=== PATIENT | female | born 1990 | race Caucasian/White ===

== ENCOUNTER 2025-02-11 12:27 | Emergency (ER) | payer OTHER, SELFPAY ==
[2025-02-11] VITALS (9 sets, daily range): BP systolic 110–121; BP diastolic 73–79; PULSE 73–89; TEMP 37.1; O2SAT 98–99; BMI 23.2
--- NOTE | 2025-02-11 12:47 | ECG_ITS ---
[facility] Test Date: 2025-02-11 Pat Name: CHERI NELSON Department: Room: - Gender: Female Assorter: : 1990 Requested By: [id number] Order Number: [id number] Reading MD: AFSHIN GARIBAY Measurements Intervals [place] Rate: 79 P: 34 ME: 148 QRS: 72 QRSD: 74 T: 43 QT: 390 QTc: 425 Interpretive Statements 1100 Sinus rhythm 9110 normal ECG No previous ECG available for comparison Electronically Signed On 02-11-2025 18:40:27 EDT by AFSHIN GARIBAY
--- NOTE | 2025-02-11 12:47 | ED_ITS ---
HPI HPI - General Adult General Chief complaint: Seizure Stated complaint: SEIZURE Time Seen by Provider: 02/11/25 12:32 Source: patient Mode of arrival: ambulance Limitations: no limitations History of Present Illness HPI narrative: 34-year-old female presents after having had a seizure. 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 She comes in from a drug treatment center and she states she is there because of the gabapentin and marijuana. She has a headache. She was given IM Ativan by the staff at the drug treatment center and was transported here by paramedics. Related Data Allergies Allergy/AdvReac Type Severity Reaction Status Date / Time No Known Drug Allergies Allergy Verified 02/11/25 12:28 Opioid HPI Opioid Management Most Recent Opioid Data: Last Pain Scale 10 Today, 12:28 Review of Systems ROS Narrative A ten point review of systems is negative except as noted above. PFSH PFSH Social History Little interest or pleasure in doing things: not at all Feeling down, depressed, or hopeless: not at all Exam Narrative Exam Narrative: Nurses note and vital signs reviewed General:The patient appears well and in no apparent distress.Patient is resting comfortably on cart, watching TV. Skin:Warm, dry, no pallor noted.There is no rash noted. Head:Normocephalic, atraumatic Eye: Normal conjunctiva, no drainage Ears, Nose, Mouth, and Throat: oral mucosa is moist. Nares patent. Cardiovascular:Regular Rate and Rhythm Respiratory:Patient is in no distress, no accessory muscle use, lungs are clear to auscultation, no wheezing, rales or rhonchi Back:non-tender GI: Soft and nontender Musculoskeletal: The patient has no evidence of calf tenderness, no pitting edema, symmetrical pulses noted bilaterally Neurological:A&O x4, normal speech Psychiatric:Cooperative Constitutional Vital Signs, click to edit/add: Last Vital Signs Temp 98.8 F 02/11/25 12:28 Pulse 89 02/11/25 13:30 Resp 21 H 02/11/25 13:30 BP 121/73 02/11/25 13:30 Pulse Ox 99 02/11/25 12:28 O2 Del Method Room Air 02/11/25 12:28 Course Vital Signs Vital signs: Vital Signs Temperature 98.8 F 02/11/25 12:28 Pulse Rate 78 02/11/25 12:28 Respiratory Rate 16 02/11/25 12:28 Blood Pressure 110/79 02/11/25 12:28 Pulse Oximetry 99 02/11/25 12:28 Oxygen Delivery Method Room Air 02/11/25 12:28 Temperature 98.8 F 02/11/25 12:28 Pulse Rate 89 02/11/25 13:30 Respiratory Rate 21 H 02/11/25 13:30 Blood Pressure 121/73 02/11/25 13:30 Pulse Oximetry 99 02/11/25 12:28 Oxygen Delivery Method Room Air 02/11/25 12:28 Medical Decision Making MDM Narrative Medical decision making narrative: Patient had a recurrent seizure and has normal logic exam. She has been referred to a neurologist and was encouraged to follow-up with them. Treatment diagnosis and follow-up were discussed with the patient. Differential Diagnosis Differential Diagnosis: Recurrent seizure, stress Lab Data Lab results reviewed: Yes I reviewed the patient's lab results Labs: Lab Results 02/11/25 Range/Units 13:00 WBC 9.0 (4.0-11.0) 10^3/uL RBC 3.92 L (4.20-5.40) 10^6/uL Hgb 11.5 L (12.0-16.0) g/dL Hct 34.8 L (36.0-48.0) % MCV 88.8 (81.0-99.0) fL MCH 29.3 (26.7-34.0) pg MCHC 33.0 (29.9-35.2) g/dL RDW 15.0 (11.0-15.0) % Plt Count 337 (150-450) 10^3/uL MPV 10.1 (9.5-13.5) fL Neut % (Auto) 66.5 (43.0-75.0) % Lymph % (Auto) 25.3 (20.5-60.0) % [place] % (Auto) 6.6 (1.7-12.0) % Eos % (Auto) 1.0 (0.9-7.0) % Baso % (Auto) 0.4 (0.2-2.0) % Neut # (Auto) 6.0 (1.4-6.5) 10^3/uL Lymph # (Auto) 2.3 (1.2-3.8) 10^3/uL [place] # (Auto) 0.6 (0.3-0.8) 10^3/uL Eos # (Auto) 0.1 (0.0-0.7) 10^3/uL Baso # (Auto) 0.0 (0.0-0.1) 10^3/uL Abs Immat Gran (auto) 0.02 (0.00-0.03) 10^3/uL Imm/Tot Granulo (auto) 0.2 (0.0-0.5) % Sodium 138 (136-145) mmol/L Potassium 3.9 (3.5-5.1) mmol/L Chloride 104 (98-107) mmol/L Carbon Dioxide 26.8 (21.0-32.0) mmol/L Anion Gap 11.1 BUN 10.0 (7.0-18.0) mg/dL Creatinine 0.53 L (0.55-1.02) mg/dL Est GFR ( Amer) >60 (>=60 mL/min/1.73m^2) Est GFR (Non-Af Amer) >60 (>=60 mL/min/1.73m^2) BUN/Creatinine Ratio 18.9 Glucose 87 (74-106) mg/dL Calcium 8.9 (8.5-10.1) mg/dL ECG Data Attestation: I personally reviewed and interpreted this ECG as follows: (EKG on my interpretation shows sinus rhythm with a rate of 79 and no acute change) Discharge Plan Discharge Chief Complaint: Seizure Clinical Impression: Seizure Patient Disposition: Home, Self-Care Time of Disposition Decision: 13:46 Condition: Good Mode of Transportation: Private Vehicle Print Language: Polish Instructions: Recurrent Seizures in Adults (ED) Referrals: Physician,Non-Staff, MD [Primary Care Provider] - 1 week
--- NOTE | 2025-02-11 12:50 | PC.NURSE ---
Pt presents to ER from [facility] rehab facility for seziures This nurse recieved phone report from nurse at the facility who states the patient had 2 back to back seziures witnessed by her Pt staets she took herself to the nurses office and layed on the floor because she knew it was coming First seizure reportedly lasted 45 seconds, second one lasted 15 seconds pt was given 2mg IM Ativan On arrival pt is A&Ox4 and able to ambulate
--- OUTSIDE RECORDS SUMMARY | 2025-02-11 12:55 | XMS_ITS | Clinical Summary ---
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 OrganizationAddressCity/State/ZIP CodePhone Number [facility] PATHOLOGY LABORATORY [address] [place] [address] * PAP SMEAR (05/15/2023 11:53 AM EST)ComponentValueRef RangeTest MethodAnalysis TimePerformed AtPathologist SignatureCase ReportGynecologic Cytology Report ? Case: [id number] ? Authorizing Provider: ??Chad Aldrich MD ??Collected: ? 05/15/2023 1153 ? Ordering Location: ? [facility] ?Received: ?05/16/2023 1043 ? Obstetrics/Gynecology ? First Screen: ?Cecilia Sotelo, ? CT(ASCP) ? Specimen: ?CTP PAP SCREEN, Cervical Thin Prep ? 05/21/2023 11:54 AM [facility] PATHOLOGY LABORATORYSpecimen AdequacySatisfactory for evaluation; endocervical/transformation zone component insufficient/absent 05/21/2023 11:54 AM [facility] PATHOLOGY LABORATORYGeneral CategorizationNegative for intraepithelial lesion or eibrtithes56/05/2024 11:54 AM [facility] PATHOLOGY LABORATORYEvaluated by: . I certify that I personally conducted the diagnostic evaluation of the above specimen(s) and have rendered the final diagnosis(es). 05/21/2023 11:54 AM [facility] PATHOLOGY LABORATORYMenstrual Status 05/21/2023 11:54 AM [facility] PATHOLOGY LABORATORYReflex HPVPerform HPV regardless of Pap Tmteev1005/21/2023 11:54 AM [facility] PATHOLOGY LABORATORYEducational Note 05/21/2023 11:54 AM [facility] PATHOLOGY LABORATORYComment: The Pap smear is a screen test for the detection of precancerous or cancerous lesions. A negative result does not entirely exclude the presence of an abnormality. This ThinPrep pap test was scanned by the ThinPrep Imaging System ([employer]), as well as examined by the certified caregiver and/or Cytopathologist listed above to enhance the sensitivity of this screening test for cervical cancer and precancerous disease. Specimen (Source)Anatomical Location / LateralityCollection Method / Volume Collection TimeReceived TimeThinPrep (Cervical Thin Prep)05/15/2023 11:53 AM EST 05/16/2023 10:43 AM EST Narrative Authorizing ProviderResult TypeResult StatusTaidine David GRAHAM CP/AP ORDERABLEFinal ResultPerforming OrganizationAddressCity/State/ZIP CodePhone Number S PATHOLOGY LABORATORY [address] [place] [address] from Last 3 Months or Most Recently Relevant to Health Maintenance Insurance * Guarantor: REUBEN ALDRICH III TypeRelation to PatientDate of PhoneBilling AddressPersonal/Whhsae6203/14/1963 [address] [place] [address] * Guarantor: Sharif Dacosta TypeRelation to PatientDate of BirthPhone Billing FlleazqQesdefahkbuevCtem95/18/1991 [address] [id number] * Guarantor: Fatuma Hutchisonhoga [facility] HospitalAccount TypeRelation to PatientDate of BirthPhoneBilling AddressH[facility]iff[facility]1949 [facility] [address] [place] [address] * Guarantor: Lucille DacostaAccount TypeRelation to PatientDate of BirthPhone Billing WpiqckgRDVFoff26/18/1991 [address] [place] [address] * Guarantor: Lucille DacostaAccount TypeRelation to PatientDate of BirthPhone Billing AddressDental VxxgifVkbv90/18/1991 [address] [place] [address] * Guarantor: Lucille DacostaAccoprisca TypeRelation to PatientDate of BirthPhone Billing AddressThird [employer] LnuzfgjbdWmwp03/18/[address] [place] [address] * Guarantor: Sharif Dacosta TypeRelation to PatientDate of BirthPhone Billing EclzpuvWttksosxybOrpf41/18/[address] [place] [address] Advance Directives * Full Code (Latest Code Status on File) Date ActivatedDate InactivatedComments12/11/2023 10:09 AM12/12/2023 4:53 PM QuestionAnswerCommentsDocumentation of decision process for this code status:* Discussed with patient or surrogate.?? This is the code status chosen by the patient/surrogate. * Full Code Date ActivatedDate InactivatedComments12/10/2023 2:46 PM12/11/2023 10:09 AM QuestionAnswerCommentsDocumentation of decision process for this code status:* Discussed with patient or surrogate.?? This is the code status chosen by the patient/surrogate. * Full Code Date ActivatedDate EcystzidlzkWsydubdp98/16/2020 4:26 AM03/31/2020 3:59 PM QuestionAnswerCommentsDocumentation of decision process for this code status:* Discussed with patient or surrogate.?? This is the code status chosen by the patient/surrogate. * Full Code Date ActivatedDate InactivatedComments10/07/2019 9:13 PM10/10/2019 7:22 PMQuestion AnswerCommentsDocumentation of decision process for this code status:* Discussed with patient or surrogate.?? This is the code status chosen by the patient/surrogate. * Full Code Date ActivatedDate InactivatedComments09/30/2019 7:50 PM10/02/2019 1:46 PMQuestion AnswerCommentsDocumentation of decision process for this code status:* Discussed with patient or surrogate.?? This is the code status chosen by the patient/surrogate. Care Teams Team MemberRelationshipSpecialtyStart DateEnd Isabelle Zamorano MD [address] [place] [address] PCP - General11/22/22 Malinda Yanez MD [address] [place] [address] PhysicianCardiovascular Uaenaji77/6/20 Chad Aldrich MD PhysicianObstetrics/Gynecology06/16/23 Jayde Su, [employer]ER-CONTENT DEVELOPMENT SPECIALIST [address] [place] [address], [place] [address] APNPsychiatry07/21/23 Ashley Harrington DO [address] [place] [address] PhysicianObstetrics/Gynecology10/20/23
--- OUTSIDE RECORDS SUMMARY | 2025-02-11 12:55 | XMS_ITS | Clinical Summary ---
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 Name Role Phone Unavailable Primary Care Provider Unavailabl e Encounters DateTypeDepartmentCare PajhZgtamsvlqwx90/23/2025Lab Requisition [facility] [address] [place] [address] Veda Rome, PhD 01/06/2025Lab Requisition [facility] [address] [place], [place] [id number] Veda Rome, PhD from Last 3 Months Social History Tobacco UseTypesPacks/DayYears UsedDateSmoking Tobacco: Never Assessed CommentsUnknownSex and Gender InformationValueDate RecordedSex Assigned at Not on fileLegal FxbSvhbjd23/23/2025 1:24 PM EDTGender IdentityNot on fileSexual OrientationNot on file Plan of Treatment Not on file Procedures Procedure NamePriorityDate/TimeAssociated DiagnosisCommentsHEPATITIS C VIRUS (HCV) RNA, QUANTITATIVE PCR, PLASMA/MFLUNKrcoibi73/22/2025 10:20 AM EDT BLOOD TB SCREEN, XJTRDTDPXXqbymrg36/22/2025 10:18 AM EDT from Last 3 Months Results * (ABNORMAL) HEPATITIS C VIRUS (HCV) RNA, QUANTITATIVE PCR, PLASMA/SERUM (01/05/2025 10:20 AM EDT)ComponentValueRef RangeTest MethodAnalysis Time Performed AtPathologist SignatureHCV RNADetected(A)Not detected ASHLEIGH NIOK 6800 01/07/2025 6:38 PM [facility]TCA[facility] LABHCV RNA (IU/mL)5,270,000 (H)IU/mL ASHLEIGH NIKO 6800 01/07/2025 6:38 PM EDTCAKRON [facility]ILDREN[facility] LABHCV RNA (log IU/mL)6.72(H) Log IU/mL ASHLEIGH NIKO 6800 01/07/2025 6:38 PM [facility] LABSpecimen (Source) Anatomical Location / LateralityCollection Method / VolumeCollection Time Received TimeBloodBLOOD SPECIMEN / Pwemvuc1001/05/2025 10:20 AM EDT01/07/2025 1:21 AM EDT Narrative [facility] - 01/07/2025 6:38 PM EDT niko HCV is an in vitro nucleic acid amplification test for both the detection and quantitation of hepatitis C virus RNA, in human EDTA plasma or serum, of HCV antibody positive or HCV-infected individuals. The linear range of the assay is 15 to 100,000,000 IU/mL (1.18 - 8.00 log IU/mL). The lower limit of detection of the assay is 15 IU/mL. Authorizing ProviderResult TypeResult StatusMajors Mackenzie Rome PhDLABORATORYFinal ResultPerforming OrganizationAddressCity/State/ZIP CodePhone Number [facility] [address] [place] [address], * BLOOD TB SCREEN, INCUBATED (01/05/2025 10:18 AM EDT)ComponentValueRef Range Test MethodAnalysis TimePerformed AtPathologist SignatureTB Nil0.09<=8.00 IU/mL01/08/2025 9:54 AM EDASHT[facility] LABTB1 Ag minus Nil 0.02<0.35 IU/mL01/08/2025 9:54 AM [facility] LABTB2 Ag minus Nil0.00<0.35 IU/mL01/08/2025 9:54 AM [facility] LAB TB AloadpLddkjpje19/25/2025 9:54 AM [facility] LABMitogen minus Nil>9.91>=0.50 IU/mL01/08/2025 9:54 AM [facility] LABTB Gamma InterpretationInfection with M. tuberculosis complex is unlikely. If latent tuberculosis infection is highly suspected, a negative result does not rule out the infection. Specimens from immunocompromised patients and those <5 years of age may show false negative results. In case of a contact investigation, please repeat 8-12 weeks after a known exposure.01/08/2025 9:54 AM EDTCAKRON CHILDREN'[facility] LABSpecimen (Source)Anatomical Location / LateralityCollection Method / VolumeCollection TimeReceived TimeBloodBLOOD SPECIMEN / Bggclgj4101/05/2025 10:18 AM EDT01/07/2025 9:49 PM EDT Narrative Authorizing ProviderResult TypeResult StatusMachrystal Rome PhDLABORATORYFinal ResultPerforming OrganizationAddressCity/State/ZIP CodePhone Number [facility] [address] [facility] [address] [place] [address], [place] from Last 3 Months
--- OUTSIDE RECORDS SUMMARY | 2025-02-11 12:55 | XMS_ITS | Clinical Summary ---
Author Organization [employer] Address [facility]-[id number] [address] [place] [address] Care Team Providers Care Protection Analyst Name Role Phone Pcp, Not In System Primary Care Provider Unavail able Allergies No known active allergies Medications MedicationSigDispense QuantityRefillsLast FilledStart DateEnd DateStatus busPIRone (BUSPAR) 10 mg tablet Take 1 tablet (10 mg total) by mouth 3 (three) times a day.Active lamoTRIgine (LaMICtal) 25 mg tablet Take 1 tablet (25 mg total) by mouth in the morning.Active DULoxetine (CYMBALTA) 30 mg capsule Take 1 capsule (30 mg total) by mouth in the morning.Active prazosin (MINIPRESS) 1 mg capsule Take 1 capsule (1 mg total) by mouth nightly.Active ARIPiprazole (ABILIFY) 5 mg tablet Take 1 tablet (5 mg total) by mouth in the morning.Active lamoTRIgine (LaMICtal) 25 mg tablet 25mg BID for 1 week 25mg am & 25mg evening x 1 wk 25mg am & 50mg evening x 1 wk 50mg am & 75mg evening x 1 wk 75mg am & 100mg evening x 1 wk 100mg am & 100mg evening until seen by neuro 240 tablet 5Active Encounters DateTypeDepartmentCare HjapLsvbavvosch30/25/2025 3:54 PM EDT - 01/08/2025 7:08 PM EDTEmergency [facility] [address] [place] [id number] Qamar Marcano, DO Breakthrough seizure (CMS-HCC) (Primary Dx) Discharge Disposition: Home01/08/2025Telephone [facility] Call Center [address] [place] [phone] 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, 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 Seizures (ERROR)01/08/2025Travelfrom Last 3 Months Social History Tobacco UseTypesPacks/DayYears UsedDateSmoking Tobacco: Never AssessedHunger ScreeningAnswerDate RecordedWithin the past 12 months we worried whether our food would run out before we got money to buy more.Never True01/08/2025Within the past 12 months the food we bought just didn't last and we didn't have money to get more.Never True01/08/2025CommentsUnknownSex and Gender InformationValueDate RecordedSex Assigned at BirthNot on fileLegal SexFemale 01/08/2025 3:50 PM EDTGender IdentityNot on fileSexual OrientationNot on file Last Filed Vital Signs Vital SignReadingTime TakenCommentsBlood Nriefofo765/62001/08/2025 6:30 PM EDT Wctxa173501/08/2025 6:30 PM IRWLiqyexyqlqz62.8 ??C (98.2 ??F)01/08/2025 3:57 PM EDTRespiratory Dfwv735301/08/2025 6:30 PM EDTOxygen Aqhrhsfypr56%01/08/2025 6:30 PM EDTInhaled Oxygen Concentration--Qxvofi68 kg (108 lb)01/08/2025 3:57 PM EDT Ispvve896.5 cm (5' 2 )01/08/2025 3:57 PM EDTBody Mass Index19.75001/08/2025 3:57 PM EDT Plan of Treatment Health MaintenanceDue DateLast DoneCommentsDepression Yszhkfvvg75/18/2003Tobacco Diirgpfnl97/18/2003Influenza Clnmjgr6412/15/2024dult BMI Ieznjcmul52/25/2026 01/08/2025Pap SmearTaP,Tdap and Td Vaccines (4 - Td or Tdap)/, 03/02/2022, 04/08/2015 Medical Devices Not on file Procedures Procedure NamePriorityDate/TimeAssociated DiagnosisCommentsMAGNESIUMSTAT 01/08/2025 4:57 PM EDT TRICYCLICS YBSLFTKYU33/25/2025 4:57 PM EDT SALICYLATE AWAKQCPOP44/25/2025 4:57 PM EDT REMDCHROCIE53/25/2025 4:57 PM EDT ACETAMINOPHEN GBXRKDIFC12/25/2025 4:57 PM EDT COMPREHENSIVE METABOLIC HQOWBSIAM08/25/2025 4:57 PM EDT CBC WITH AUTO XBGVDCBIQVKQAZCX96/25/2025 4:57 PM EDT EXTRA TUBES BLUE ZLFNarixlo41/25/2025 4:56 PM EDT EXTRA CJAULTmnlqrb33/25/2025 4:56 PM EDT POCT , URINE (NUCG)Qgzrihh3301/08/2025 4:14 PM EDT POCT NURSING URINE MACROSCOPIC CSYfpsrzz59/25/2025 4:13 PM EDT ER EXTRA WHUSOAOBA05/25/2025 4:10 PM EDT DRUG SCREEN, TRZWLACTT94/25/2025 4:10 PM EDT ECG 12-YCJGYUAH66/25/2025 3:58 PM EDTfrom Last 3 Months Results * Tricyclics total (01/08/2025 4:57 PM EDT)ComponentValueRef RangeTest Method Analysis TimePerformed AtPathologist SignatureTRICYCLICSNegativeNegative 01/08/2025 10:31 PM EDTTUNIVERSITY [facility] LABORATORYSpecimen (Source) Anatomical Location / LateralityCollection Method / VolumeCollection Time Received TimeBloodVenous blood / UnknownVenipuncture / Gcaizje9901/08/2025 4:57 PM EDT01/08/2025 5:00 PM EDT Narrative [facility] - 01/08/2025 10:31 PM EDT Interpret a qualitative NEGATIVE result as less than 300 ng/mL. Authorizing ProviderResult TypeResult StatusMarchristie SORIANO BLOOD ORDERABLESFinal ResultPerforming OrganizationAddressCity/State/ZIP CodePhone Number [facility] [address] [place] [address], * (ABNORMAL) CBC auto differential (01/08/2025 4:57 PM EDT)ComponentValueRef RangeTest MethodAnalysis TimePerformed AtPathologist SignatureWBC7.44 - 11 x10E9/L01/08/2025 5:05 PM EDTPBETHESDA NORTH HOSPITALRBC Count4.15 3.8 - 5.2 X10E12/L01/08/2025 5:05 PM [facility] Dctygwftzt56.6(L)11.7 - 15.5 g/dL01/08/2025 5:05 PM EDREGENCY HOS[facility]ITAL CLEVELAND WESTHematocrit35.135 - 47 %01/08/2025 5:05 PM EDREGENCY HOSPITAL CLEVELAND WESTMCV8580 - 100 fL01/08/2025 5:05 PM EDTPBETHESDA NORTH HOSPITALMCH28.027 - 34 pg01/08/2025 5:05 PM [facility]BUSMCHC33.132 - 36 g/dL01/08/2025 5:05 PM EDTPBETHESDA NORTH HOSPITALRDW16.2(H)11.5 - 15 %01/08/2025 5:05 PM EDTPBETHESDA NORTH HOSPITALPlatelet Mnibw858411 - 450 X10E9/L01/08/2025 5:05 PM EDTPBETHESDA NORTH HOSPITALMPV8.37 - 12 fL01/08/2025 5:05 PM EDT [facility]ONNeutrophils %59.6%01/08/2025 5:05 PM EDT [facility]ONLymphocytes %30.0%01/08/2025 5:05 PM EDT [facility] HOSPITALMonocytes %8.1%01/08/2025 5:05 PM EDT [facility] HOSPITALEosinophils %1.7%01/08/2025 5:05 PM EDT [facility]ONBasophils %0.6%01/08/2025 5:05 PM EDT [facility]ONNeutrophils Absolute (A)4.41.5 - 6.6 10*3/uL01/08/2025 5:05 PM EDTPBETHESDA NORTH HOSPITALLymphocytes Absolute2.21.0 - 3.5 10*3/uL01/08/2025 5:05 PM EDTPPREMIER HEALTH ATRI[facility] HOSPITALMonocytes Absolute0.60.0 - 0.9 10*3/uL01/08/2025 5:05 PM EDTPPREMIER HEALTH ATRI[facility]ENTER HOSPITALEosinophils Absolute0.10.0 - 0.4 10*3/uL01/08/2025 5:05 PM EDTPBETHESDA NORTH HOSPITALBasophils Absolute0.00.0 - 0.2 10*3/uL01/08/2025 5:05 PM EDREGENCY HOSPITAL [facility]LEVEL[facility] WESTDifferential TypeAUTOMATED GVZJJTLYKSIH18/25/2025 5:05 PM [facility]ITALpecimen (Source)Anatomical Location / LateralityCollection Method / VolumeCollection TimeReceived TimeBloodVenous blood / UnknownVenipuncture / Agdksaq5501/08/2025 4:57 PM EDT01/08/2025 5:00 PM EDT Narrative Authorizing ProviderResult TypeResult StatusMarchristie Moore [facility]AB BLOOD ORDERABLESFinal ResultPerforming OrganizationAddressCity/State/ZIP CodePhone Number [facility] [address] [place] [address], * Magnesium (01/08/2025 4:57 PM EDT)ComponentValueRef RangeTest MethodAnalysis TimePerformed AtPathologist SignatureMAGNESIUM2.01.8 - 2.6 mg/dL01/08/2025 5:24 PM EDMOUNT CARMEL HEALTH SYSTEMpecimen (Source)Anatomical Location / LateralityCollection Method / VolumeCollection TimeReceived Time BloodVenous blood / UnknownVenipuncture / Fqtknay8701/08/2025 4:57 PM EDT 01/08/2025 5:00 PM EDT Narrative Authorizing ProviderResult TypeResult StatusQamar Sonatib DOLAB BLOOD ORDERABLESFinal ResultPerforming OrganizationAddressty/State/ZIP CodePhone Number [address] [place] [address], [place] * Ethanol (01/08/2025 4:57 PM EDT)ComponentValueRef RangeTest MethodAnalysis TimePerformed AtPathologist SignatureETHANOL<0.010<=0.080 g/dL01/08/2025 5:24 PM [facility]Comment: This report is intended for use in clinical monitoring or management of patients. Specimen (Source)Anatomical Location / LateralityCollection Method / Volume Collection TimeReceived TimeBloodVenous blood / UnknownVenipuncture / Unknown 01/08/2025 4:57 PM EDT01/08/2025 5:00 PM EDT Narrative Authorizing ProviderResult TypeResult StatusRachael Moore DOLAB BLOOD ORDERABLESFinal ResultPerforming OrganizationAddressty/State/[facility] CodePhone Number [address] [place] [address], [place] * (ABNORMAL) Acetaminophen level (01/08/2025 4:57 PM EDT)ComponentValueRef Range Test MethodAnalysis TimePerformed AtPathologist SignatureACETAMINOPHEN4.0(L) 10.0 - 30.0 ug/mL01/08/2025 5:24 PM [facility] Specimen (Source)Anatomical Location / LateralityCollection Method / Volume Collection TimeReceived TimeBloodVenous blood / UnknownVenipuncture / Unknown 01/08/2025 4:57 PM EDT01/08/2025 5:00 PM EDT Narrative [facility] - 01/08/2025 5:24 PM EDT Reference ranges are for therapeutic limits. Authorizing ProviderResult TypeResult StatusMarchristie Moore DOLAB BLOOD ORDERABLESFinal ResultPerforming OrganizationAddressCity/State/ZIP CodePhone Number [address] [id number], * Salicylate level (01/08/2025 4:57 PM EDT)ComponentValueRef RangeTest Method Analysis TimePerformed AtPathologist SignatureSALICYLATE<4.02.0 - 25.0 mg/dL 01/08/2025 5:24 PM EDTPTRINITY HEALTH SYSTEMpecimen (Source) Anatomical Location / LateralityCollection Method / VolumeCollection Time Received TimeBloodVenous blood / UnknownVenipuncture / Lbfblyh3401/08/2025 4:57 PM EDT01/08/2025 5:00 PM EDT Narrative [facility] - 01/08/2025 5:24 PM EDT Reference ranges are for therapeutic limits. Authorizing ProviderResult TypeResult StatusRachael MENGAB BLOOD ORDERABLESFinal ResultPerforming OrganizationAddressty/State/ZIP CodePhone Number [address] [place] [address], * (ABNORMAL) Comprehensive metabolic panel (01/08/2025 4:57 PM EDT)Component ValueRef RangeTest MethodAnalysis TimePerformed AtPathologist SignatureSODIUM 380820 - 146 mmol/L01/08/2025 5:24 PM EDTPBETHESDA NORTH HOSPITAL POTASSIUM4.73.5 - 5.0 mmol/L01/08/2025 5:24 PM EDTPBETHESDA NORTH HOSPITALCHLORIDE10798 - 109 mmol/L01/08/2025 5:24 PM EDTPBETHESDA NORTH HOSPITALCARBON FYVKPDQ8972 - 32 mmol/L01/08/2025 5:24 PM EDTPBETHESDA NORTH HOSPITALANION GAP75 - 15 mmol/L01/08/2025 5:24 PM EDT [facility]ONBLOOD UREA AYWXCZVR015 - 23 mg/dL01/08/2025 5:24 PM EDTPBETHESDA NORTH HOSPITALCREATININE0.740.40 - 1.00 mg/dL 01/08/2025 5:24 PM [facility]Comment:METHOD TRACEABLE TO IDMS AUMXZCSNPHTVXIK7058 - 99 mg/dL01/08/2025 5:24 PM EDT [facility] AVONCALCIUM9.38.5 - 10.5 mg/dL01/08/2025 5:24 PM [facility] COLUMBUSTOTAL PROTEIN7.46.0 - 8.0 g/dL 01/08/2025 5:24 PM [facility]BUSALBUMIN4.03.2 - 5.3 g/dL01/08/2025 5:24 PM [facility]BUSALKALINE NECAFJZUYRP2040 - 130 U/L01/08/2025 5:24 PM [facility]BUSAST39<=41 U/L01/08/2025 5:24 PM [facility] ALT68(H)<=31 U/L01/08/2025 5:24 PM [facility] BILIRUBIN,TOTAL1.00.3 - 1.2 mg/dL01/08/2025 5:24 PM [facility] COLUMBUSEGFR Non-Race Dependent>90>=60 ml/min/1.73sq.m001/08/2025 5:24 PM [facility]Comment: eGFR not reported due to non-numeric value for Creatinine. Reported eGFR is based on the CKD-EPI 2020 equation that does not use a race coefficient. Specimen (Source)Anatomical Location / LateralityCollection Method / Volume Collection TimeReceived TimeBloodVenous blood / UnknownVenipuncture / Unknown 01/08/2025 4:57 PM EDT01/08/2025 5:00 PM EDT Narrative Authorizing ProviderResult TypeResult StatusRachael SORIANO BLOOD ORDERABLESFinal ResultPerforming OrganizationAddressCity/State/ZIP CodePhone Number [facility] [address] [place] [address], * Light Blue Top (01/08/2025 4:56 PM EDT)ComponentValueRef RangeTest Method Analysis TimePerformed AtPathologist SignatureExtra TubeAuto Resulted 01/08/2025 6:01 PM EDTPK[facility]tering [facility] (Source) Anatomical Location / LateralityCollection Method / VolumeCollection Time Received TimeBloodVenous blood / Iaqlmic1401/08/2025 4:56 PM EDT01/08/2025 5:00 PM EDT Narrative Authorizing ProviderResult TypeResult StatusQamar Marcano DOLAB BLOOD ORDERABLESFinal ResultPerforming OrganizationAddressCity/State/ZIP CodePhone Number [address] [place] [address], [place] * POCT , urine (01/08/2025 4:14 PM EDT)ComponentValueRef RangeTest MethodAnalysis TimePerformed AtPathologist [facility] Urine NegativeNegative, Ssfxyrmxdrtcm02/25/2025 4:21 PM EDMet[facility] (Source)Anatomical Location / LateralityCollection Method / VolumeCollection TimeReceived TzovNwhmh52/25/2025 4:14 PM EDT 01/08/2025 4:21 PM EDT Narrative Authorizing ProviderResult TypeResult StatusQamar Nicholskhatib DOPOINT OF CARE TEST ORDERABLESFinal ResultPerforming OrganizationAddressty/State/ZIP Code Phone Number [address] [place] [address], [place] * (ABNORMAL) POCT Nursing Urine Macroscopic UA (01/08/2025 4:13 PM EDT)Component ValueRef RangeTest MethodAnalysis TimePerformed AtPathologist [facility] Urine Specific Gravity1.0101.010, 1.015, 1.020, 1.2514201/08/2025 4:15 PM EDT [facility] Urine Leukocyte EsteraseNegative Jzycmxai34/25/2025 4:15 PM [facility]BL[facility] Urine CkyfomtDvateoriTjdgyqdc55/25/2025 4:15 PM EDBL[facility] Urine pH6.05.0, 6.0, 6.5, 7.0, 7.5, 8.0, 8.5, 5.509 4:15 PM EDTPMOUNT [facility]MEL [facility] Urine ProteinNegativeNegative 01/08/2025 4:15 PM [facility]BL[facility] Urine Glucose WshxytsaOgtnyivj21/25/2025 4:15 PM EDBL[facility] Urine YremleiAifqaiwpInplhvme60/25/2025 4:15 PM EDBL[facility] Urine Urobilinogen1.0 E.U./dL01/08/2025 4:15 PM EDBLAN[facility] Urine UjcaiuhwoUwkfxxtuZcjoplnw70/25/2025 4:15 PM [facility] Urine Blood/HGBTrace(A)Negative 01/08/2025 4:15 PM [facility] (Source) Anatomical Location / LateralityCollection Method / VolumeCollection Time Received PgqgIzqiq03/25/2025 4:13 PM EDT01/08/2025 4:15 PM EDT Narrative Authorizing ProviderResult TypeResult StatusQamar Mann Krys DOPOINT OF CARE TEST ORDERABLESFinal ResultPerforming OrganizationAddressCity/State/ZIP Code Phone Number [address] [place] [address], [place] * Extra Urine (01/08/2025 4:10 PM EDT)ComponentValueRef RangeTest MethodAnalysis TimePerformed AtPathologist SignatureExtra TubeAuto Qwjtigte46/25/2025 6:01 PM EDMetroHealth [facility] (Source)Anatomical Location / LateralityCollection Method / VolumeCollection TimeReceived TimeUrineUrine specimen collection, clean catch / Scacklx3601/08/2025 4:10 PM EDT01/08/2025 4:20 PM EDT Narrative Authorizing ProviderResult TypeResult StatusRachael Moore DOURINE ORDERABLES Final ResultPerforming OrganizationAddressCity/[facility] CodePhone Number [address] [place] [address], [place] * (ABNORMAL) Drug Screen, Urine (01/08/2025 4:10 PM EDT)ComponentValueRef Range Test MethodAnalysis TimePerformed AtPathologist SignatureAMPHETAMINE/METHAMP IqzuxtviBsesodkn73/25/2025 4:47 PM [facility] Comment:AMPH/METH screening cut off = 1000 ng/mLCOCAINE METABOLITENegative Aamkhtfb94/25/2025 4:47 PM [facility]Comment: Cocaine screening cut off value = 300 ng/bLCSQGJZSZuuoidrfFdmmnjoh77/25/2025 4:47 PM [facility]Comment:Ecstasy screening cut off value = 500 ng/mPZLDQUZTNJVnxlercrSpvcacux74/25/2025 4:47 PM [facility]Comment:Methadone screening cut off value = 300 ng/mL.XFHVQTNRmireobgPvwjikla07/25/2025 4:47 PM [facility]Comment: Opiates screening cut off value = 300 ng/mL This test is used for the detection of codeine, hydrocodone (>1000 ng/mL), morphine and hydromorphone (>900 ng/mL) in urine. FWCEZPEPDJsaywofuZraplqyw14/25/2025 4:47 PM [facility]Comment: Oxycodone screening cut off value = 300 ng/mL This test is used for the detection of oxycodone and oxymorphone in urine. QBWIHFRMMCUJMIsdciutpXhvmhxmr70/25/2025 4:47 PM [facility]Comment:Phencyclidine screening cut off value = 25 ng/mLCANNABINOIDS Positive(A)Qdjbtiaz21/25/2025 4:47 PM [facility] Comment:Cannabinoids/THC screening cut off value = 50 ng/mLUrine Barbiturates PfqepksgNuwiwgam76/25/2025 4:47 PM [facility] Comment:Barbiturates screening cut off value = 200 ng/mLBENZODIAZEPINESNegative Vqsaivzm79/25/2025 4:47 PM [facility]Comment: Benzodiazepines screening cut off value = 200 ng/mLSpecimen (Source)Anatomical Location / LateralityCollection Method / VolumeCollection TimeReceived TimeUrine 01/08/2025 4:10 PM EDT01/08/2025 4:20 PM EDT Narrative [facility] - 01/08/2025 4:47 PM EDT Confirmation available upon request. Authorizing ProviderResult TypeResult StatusMarchristie Moore DOURINE ORDERABLES Final ResultPerforming OrganizationAddressCity/State/ZIP CodePhone Number [facility] [address] [place] [address], * ECG 12 lead (01/08/2025 3:58 PM EDT)Specimen (Source)Anatomical Location / LateralityCollection Method / VolumeCollection TimeReceived Time01/08/2025 3:58 PM EDT Narrative Authorizing ProviderResult TypeResult StatusMarchristie Moore DOECG ORDERABLES Final ResultPerforming OrganizationAddressCity/State/ZIP CodePhone Number [facility] from Last 3 Months Insurance Care Teams Team MemberRelationshipSpecialtyStart DateEnd Date Pcp, Not In System JOHNY Curtis [id number] PCP - Generalmily Medicine01/08/25
[2025-02-11 13:22] LABS: Hematocrit 34.8 % (36.0-48.0); Hemoglobin 11.5 g/dL (12.0-16.0); Immature Granulocytes Abs Auto 0.02 10^3/uL (0.00-0.03); Immature Granulocytes Pct Auto 0.2 % (0.0-0.5); Lymphocytes Absolute Auto 2.3 10^3/uL (1.2-3.8); Mean Corpuscular HGB Conc 33.0 g/dL (29.9-35.2); Mean Corpuscular Hemoglobin 29.3 pg (26.7-34.0); Mean Corpuscular Volume 88.8 fL (81.0-99.0); Platelet Count 337 10^3/uL (150-450); Red Blood Count 3.92 10^6/uL (4.20-5.40); White Blood Count 9.0 10^3/uL (4.0-11.0)
[2025-02-11 13:29] LABS: Anion Gap 11.1; Blood Urea Nitrogen 10.0 mg/dL (7.0-18.0); Calcium 8.9 mg/dL (8.5-10.1); Carbon Dioxide 26.8 mmol/L (21.0-32.0); Chloride 104 mmol/L (98-107); Estimated GFR (African America >60 (>=60 mL/min/1.73m^2); Estimated GFR (Non-African Ame >60 (>=60 mL/min/1.73m^2); Glucose 87 mg/dL (74-106); Potassium 3.9 mmol/L (3.5-5.1); Sodium 138 mmol/L (136-145)
== END 2025-02-11 14:20 | disposition home or self-care (01) ==
PROVIDERS: Emergency Provider Emergency Medicine
DX: R56.9 Unspecified convulsions (principal); R51.9 Headache, unspecified; Z79.899 Other long term (current) drug therapy
CPT/HCPCS: 36415; 80048; 85025; 93005; 99284

== ENCOUNTER 2025-02-14 11:02 | Emergency (ER) | payer OTHER, SELFPAY ==
[2025-02-14] VITALS (16 sets, daily range): BP systolic 97–113; BP diastolic 59–72; PULSE 72–93; TEMP 36.3; O2SAT 95–99; BMI 21.9
--- OUTSIDE RECORDS SUMMARY | 2025-02-14 11:09 | XMS_ITS | Clinical Summary ---
Author Organization [employer] Address [id number] [address] [place] [address] Care Team Providers Care Loan Analyst Name Role Phone Pcp, Not In [...] by neuro 240 tablet 5Active Encounters DateTypeDepartmentCare InxmLfqtdtcktpd02/25/2025 3:54 PM EDT - 01/08/2025 7:08 PM EDTEmergency [facility] [address] [place] [phone] Qamar Marcano, DO Breakthrough seizure (CMS-HCC) (Primary Dx) Discharge Disposition: Home01/08/2025Telephone [facility] [address] [place] [phone] Ama Núñez, ENVIRONMENTAL GEOLOGIST Seizures (ERROR)01/08/2025Travelfrom Last 3 Months Social History [...] Last Filed Vital Signs Vital SignReadingTime TakenCommentsBlood Idnipjfu292/62001/08/2025 6:30 PM EDT Hwclm041001/08/2025 6:30 PM FKYRrmjrgjjsrk97.8 ??C (98.2 ??F)01/08/2025 3:57 PM EDTRespiratory Xplu272101/08/2025 6:30 PM EDTOxygen Avihmifues38%01/08/2025 6:30 PM EDTInhaled Oxygen Concentration--Rrahng77 kg (108 lb)01/08/2025 3:57 PM EDT Odkpsg210.5 cm (5' 2 )01/08/2025 3:57 PM EDTBody Mass Index19.75001/08/2025 3:57 PM EDT Plan of Treatment Health MaintenanceDue DateLast DoneCommentsDepression Zawkdlcaq10/18/2003Tobacco Sacdjttzm82/18/2003Influenza Pagqrwr9012/15/2024dult BMI Kjsakaols95/25/2026 01/08/2025Pap SmearTaP,Tdap and Td Vaccines (4 - Td or Tdap)/, 03/02/2022, 04/08/2015 Medical Devices Not on file Procedures Procedure NamePriorityDate/TimeAssociated DiagnosisCommentsMAGNESIUMSTAT 01/08/2025 4:57 PM EDT TRICYCLICS YDSXBCEZU08/25/2025 4:57 PM EDT SALICYLATE IJNMTVKGW59/25/2025 4:57 PM EDT ASKAJVIRAEA74/25/2025 4:57 PM EDT ACETAMINOPHEN WDQLACFTW04/25/2025 4:57 PM EDT COMPREHENSIVE METABOLIC RFCITGSRZ56/25/2025 4:57 PM EDT CBC WITH AUTO PCTHRTITFCRJUZQB04/25/2025 4:57 PM EDT EXTRA TUBES BLUE LDXMrgdcmj65/25/2025 4:56 PM EDT EXTRA KGMKBKynimph69/25/2025 4:56 PM EDT POCT , URINE (NUCG)Wfpnpme9701/08/2025 4:14 PM EDT POCT NURSING URINE MACROSCOPIC PJJooepqt42/25/2025 4:13 PM EDT ER EXTRA PVWQCADWJ46/25/2025 4:10 PM EDT DRUG SCREEN, GREZWLOZG60/25/2025 4:10 PM EDT ECG 12-VBBXMJZG28/25/2025 3:58 PM EDTfrom Last 3 Months Results * Tricycl[employer] total (01/08/2025 4:57 PM EDT)ComponentValueRef RangeTest Method Analysis TimePerformed AtPathologist SignatureTRICYCLICSNegativeNegative 01/08/2025 10:31 PM EDTTHOLMES [facility] LABORATORYSpecimen (Source) Anatomical Location / LateralityCollection Method / VolumeCollection Time Received TimeBloodVenous blood / UnknownVenipuncture / Mdocoli6601/08/2025 4:57 PM EDT01/08/2025 5:00 PM EDT Narrative [facility] - 01/08/2025 10:31 PM EDT Interpret a qualitative NEGATIVE result as less than 300 ng/mL. Authorizing ProviderResult TypeResult StatusMarchristie SORIANO BLOOD ORDERABLESFinal ResultPerforming OrganizationAddressCity/State/ZIP CodePhone Number [facility] [address] [place] [address], * (ABNORMAL) CBC auto differential (01/08/2025 4:57 PM EDT)ComponentValueRef RangeTest MethodAnalysis TimePerformed AtPathologist SignatureWBC7.44 - 11 x10E9/L01/08/2025 5:05 PM EDTPREGENCY HOSPITAL TOLEDORBC Count4.15 3.8 - 5.2 X10E12/L01/08/2025 5:05 PM [facility] Gswdstkxxt19.6(L)11.7 - 15.5 g/dL01/08/2025 5:05 PM EDSUMMA HEALTH AKRON CAMPUSHematocrit35.135 - 47 %01/08/2025 5:05 PM EDSUMMA [facility]ALTH AKRON CAMPUSMCV8580 - 100 fL01/08/2025 5:05 PM EDTPREGENCY HOSPITAL TOLEDOMCH28.027 - 34 pg01/08/2025 5:05 PM [facility], INCMCHC33.132 - 36 g/dL01/08/2025 5:05 PM EDTPREGENCY HOSPITAL TOLEDORDW16.2(H)11.5 - 15 %01/08/2025 5:05 PM EDTPREGENCY HOSPITAL TOLEDOPlatelet Pkqjb639952 - 450 X10E9/L01/08/2025 5:05 PM EDTPREGENCY HOSPITAL TOLEDOMPV8.37 - 12 fL01/08/2025 5:05 PM EDT [facility]Neutrophils %59.6%01/08/2025 5:05 PM EDT [facility] DUBLINLymphocytes %30.0%01/08/2025 5:05 PM EDT [facility] HOSPITALMonocytes %8.1%01/08/2025 5:05 PM EDT [facility] HOSPITALEosinophils %1.7%01/08/2025 5:05 PM EDT [facility]Basophils %0.6%01/08/2025 5:05 PM EDT [facility]INNeutrophils Absolute (A)4.41.5 - 6.6 10*3/uL01/08/2025 5:05 PM EDTPREGENCY HOSPITAL TOLEDOLymphocytes Absolute2.21.0 - 3.5 10*3/uL01/08/2025 5:05 PM EDTPACMC [facility]ALTH[facility]ARE [facility] HOSPITALMonocytes Absolute0.60.0 - 0.9 10*3/uL01/08/2025 5:05 PM EDTPACMC HEALTHCARE SYSTEM HOSPITALEosinophils Absolute0.10.0 - 0.4 10*3/uL01/08/2025 5:05 PM EDTPREGENCY HOSPITAL TOLEDOBasophils Absolute0.00.0 - 0.2 10*3/uL01/08/2025 5:05 PM EDSUMMA HEALTH [facility]RON CAMPUSDifferential TypeAUTOMATED MRDRWAKPHBUL40/25/2025 5:[address] [facility]ITALpecimen (Source)Anatomical Location / LateralityCollection Method / VolumeCollection TimeReceived TimeBloodVenous blood / UnknownVenipuncture / Epwdcnh9701/08/2025 4:57 PM EDT01/08/2025 5:00 PM EDT Narrative Authorizing ProviderResult TypeResult StatusMarchristie Moore [facility]AB BLOOD ORDERABLESFinal ResultPerforming OrganizationAddressCity/State/ZIP CodePhone Number [facility] [address] [place] [address], * Magnesium (01/08/2025 4:57 PM EDT)ComponentValueRef RangeTest MethodAnalysis TimePerformed AtPathologist SignatureMAGNESIUM2.01.8 - 2.6 mg/dL01/08/2025 5:24 PM EDFULTON COUNTY HEALTH CENTERpecimen (Source)Anatomical Location / LateralityCollection Method / VolumeCollection TimeReceived Time BloodVenous blood / UnknownVenipuncture / Obkbvnx0901/08/2025 4:57 PM EDT 01/08/2025 5:00 PM EDT Narrative Authorizing ProviderResult TypeResult StatusQamar Sonatib DOLAB BLOOD ORDERABLESFinal ResultPerforming OrganizationAddressty/State/ZIP CodePhone Number [address] [place] [address], [place] * Ethanol (01/08/2025 4:57 PM EDT)ComponentValueRef RangeTest MethodAnalysis TimePerformed AtPathologist SignatureETHANOL<0.010<=0.080 g/dL01/08/2025 5:24 PM [facility], INCComment: This report is intended for use in clinical monitoring or management of patients. Specimen (Source)Anatomical Location / LateralityCollection Method / Volume Collection TimeReceived TimeBloodVenous blood / UnknownVenipuncture / Unknown 01/08/2025 4:57 PM EDT01/08/2025 5:00 PM EDT Narrative Authorizing ProviderResult TypeResult StatusRachael Moore DOLAB BLOOD ORDERABLESFinal ResultPerforming OrganizationAddressty/State/[facility] CodePhone Number [address] [address], [place] * (ABNORMAL) Acetaminophen level (01/08/2025 4:57 PM EDT)ComponentValueRef Range Test MethodAnalysis TimePerformed AtPathologist SignatureACETAMINOPHEN4.0(L) 10.0 - 30.0 ug/mL01/08/2025 5:24 PM [facility] Specimen (Source)Anatomical Location / LateralityCollection Method / Volume Collection TimeReceived TimeBloodVenous blood / UnknownVenipuncture / Unknown 01/08/2025 4:57 PM EDT01/08/2025 5:00 PM EDT Narrative [facility] - 01/08/2025 5:24 PM EDT Reference ranges are for therapeutic limits. Authorizing ProviderResult TypeResult StatusMarchristie Moore DOLAB BLOOD ORDERABLESFinal ResultPerforming OrganizationAddressCity/State/ZIP CodePhone Number [address] [address], * Salicylate level (01/08/2025 4:57 PM EDT)ComponentValueRef RangeTest Method Analysis TimePerformed AtPathologist SignatureSALICYLATE<4.02.0 - 25.0 mg/dL 01/08/2025 5:24 PM EDTPKETTERING HEALTH WASHINGTON TOWNSHIPpecimen (Source) Anatomical Location / LateralityCollection Method / VolumeCollection Time Received TimeBloodVenous blood / UnknownVenipuncture / Jtmbldi7001/08/2025 4:57 PM EDT01/08/2025 5:00 PM EDT Narrative [facility] - 01/08/2025 5:24 PM EDT Reference ranges are for therapeutic limits. Authorizing ProviderResult TypeResult StatusRachael MENGAB BLOOD ORDERABLESFinal ResultPerforming OrganizationAddressty/State/ZIP CodePhone Number [address] [place] [address], * (ABNORMAL) Comprehensive metabolic panel (01/08/2025 4:57 PM EDT)Component ValueRef RangeTest MethodAnalysis TimePerformed AtPathologist SignatureSODIUM 080623 - 146 mmol/L01/08/2025 5:24 PM EDTPREGENCY HOS[facility]ITAL [facility] POTASSIUM4.73.5 - 5.0 mmol/L01/08/2025 5:24 PM EDTPREGENCY HOSPITAL TOLEDOCHLORIDE10798 - 109 mmol/L01/08/2025 5:24 PM EDTPREGENCY HOSPITAL TOLEDOCARBON MBQPXHQ0718 - 32 mmol/L01/08/2025 5:24 PM EDTPREGENCY HOSPITAL TOLEDOANION GAP75 - 15 mmol/L01/08/2025 5:24 PM EDT [facility]INBLOOD UREA CLRPRLNO587 - 23 mg/dL01/08/2025 5:24 PM EDTPREGENCY HOSPITAL TOLEDOCREATININE0.740.40 - 1.00 mg/dL 01/08/2025 5:24 PM [facility], INCComment:METHOD TRACEABLE TO IDMS EZKCNLDNEKIKYOG1831 - 99 mg/dL01/08/2025 5:24 PM EDT [facility] DUBLINCALCIUM9.38.5 - 10.5 mg/dL01/08/2025 5:24 PM [facility], INCTOTAL PROTEIN7.46.0 - 8.0 g/dL 01/08/2025 5:24 PM [facility], INCALBUMIN4.03.2 - 5.3 g/dL01/08/2025 5:24 PM [facility], INCALKALINE DPFQAQUQXFF6909 - 130 U/L01/08/2025 5:24 PM [facility] INCAST39<=41 U/L01/08/2025 5:24 PM [facility] ALT68(H)<=31 U/L01/08/2025 5:24 PM [facility] BILIRUBIN,TOTAL1.00.3 - 1.2 mg/dL01/08/2025 5:24 PM [facility], INCEGFR Non-Race Dependent>90>=60 ml/min/1.73sq.m001/08/2025 5:24 PM [facility], INCComment: eGFR not reported due to non-numeric value for Creatinine. Reported eGFR is based on the CKD-EPI 2020 equation that does not use a race coefficient. Specimen (Source)Anatomical Location / LateralityCollection Method / Volume Collection TimeReceived TimeBloodVenous blood / UnknownVenipuncture / Unknown 01/08/2025 4:57 PM EDT01/08/2025 5:00 PM EDT Narrative Authorizing ProviderResult TypeResult StatusRachael SORIANO BLOOD ORDERABLESFinal ResultPerforming OrganizationAddressCity/State/ZIP CodePhone Number [facility] [address] [place] [address], * Light Blue Top (01/08/2025 4:56 PM EDT)ComponentValueRef RangeTest Method Analysis TimePerformed AtPathologist SignatureExtra TubeAuto Resulted 01/08/2025 6:01 PM EDTPK[facility] (Source) Anatomical Location / LateralityCollection Method / VolumeCollection Time Received TimeBloodVenous blood / Idhrtez8101/08/2025 4:56 PM EDT01/08/2025 5:00 PM EDT Narrative Authorizing ProviderResult TypeResult StatusQamar Marcano DOLAB BLOOD ORDERABLESFinal ResultPerforming OrganizationAddressCity/State/ZIP CodePhone Number [address] [address], [place] * POCT , urine (01/08/2025 4:14 PM EDT)ComponentValueRef RangeTest MethodAnalysis TimePerformed AtPathologist [facility] Urine NegativeNegative, Xkxntrxjelkoj54/25/2025 4:21 PM ED[facility] (Source)Anatomical Location / LateralityCollection Method / VolumeCollection TimeReceived GmioNseqf33/25/2025 4:14 PM EDT 01/08/2025 4:21 PM EDT Narrative Authorizing ProviderResult TypeResult StatusQamar Nicholskhatib DOPOINT OF CARE TEST ORDERABLESFinal ResultPerforming OrganizationAddressty/State/ZIP Code Phone Number [address] [place] [address], [place] * (ABNORMAL) POCT Nursing Urine Macroscopic UA (01/08/2025 4:13 PM EDT)Component ValueRef RangeTest MethodAnalysis TimePerformed AtPathologist [facility] Urine Specific Gravity1.0101.010, 1.015, 1.020, 1.5154601/08/2025 4:15 PM EDT [facility] Urine Leukocyte EsteraseNegative Afpljjqi16/25/2025 4:[facility] Urine XtjpybcLkyhquqkGezxgxqb03/25/2025 4:15 PM [facility] Urine pH6.05.0, 6.0, 6.5, 7.0, 7.5, 8.0, 8.5, 5.509 4:15 PM [facility] Urine ProteinNegativeNegative 01/08/2025 4:15 PM [facility] Urine Glucose LohxyznfNbksnjvb02/25/2025 4:15 PM [facility] Urine ZmgmtexNjiwjkwfHoxulscv34/25/2025 4:15 PM [facility] Urine Urobilinogen1.0 E.U./dL01/08/2025 4:15 PM [facility] Urine ZjzoifcveGikkojexJfhndzzt61/25/2025 4:15 PM [facility] Urine Blood/HGBTrace(A)Negative 01/08/2025 4:15 PM [facility] (Source) Anatomical Location / LateralityCollection Method / VolumeCollection Time Received JbrhAjhqd66/25/2025 4:13 PM EDT01/08/2025 4:15 PM EDT Narrative Authorizing ProviderResult TypeResult StatusQamar Mann Krys DOPOINT OF CARE TEST ORDERABLESFinal ResultPerforming OrganizationAddressCity/State/ZIP Code Phone Number [address] [place] [address], [place] * Extra Urine (01/08/2025 4:10 PM EDT)ComponentValueRef RangeTest MethodAnalysis TimePerformed AtPathologist SignatureExtra TubeAuto Uromyuno83/25/2025 6:01 PM ED[facility] (Source)Anatomical Location / LateralityCollection Method / VolumeCollection TimeReceived TimeUrineUrine specimen collection, clean catch / Uczjigt4201/08/2025 4:10 PM EDT01/08/2025 4:20 PM EDT Narrative Authorizing ProviderResult TypeResult StatusRachael Moore DOURINE ORDERABLES Final ResultPerforming OrganizationAddressCity/[facility] CodePhone Number [address] [place] [address], [place] * (ABNORMAL) Drug Screen, Urine (01/08/2025 4:10 PM EDT)ComponentValueRef Range Test MethodAnalysis TimePerformed AtPathologist SignatureAMPHETAMINE/METHAMP HwjcfayqSfvmzlrd83/25/2025 4:47 PM [facility] Comment:AMPH/METH screening cut off = 1000 ng/mLCOCAINE METABOLITENegative Grggojpq34/25/2025 4:47 PM [facility], INCComment: Cocaine screening cut off value = 300 ng/sJWADVSWMJgwyyxprIoohvydq83/25/2025 4:47 PM [facility], INCComment:Ecstasy screening cut off value = 500 ng/pRDYYZBCMLTVokbzzalDejklxvj19/25/2025 4:47 PM [facility], INCComment:Methadone screening cut off value = 300 ng/mL.ZDSRDYRDhihqswbHwvmzqol64/25/2025 4:47 PM [facility] INCComment: Opiates screening cut off value = 300 ng/mL This test is used for the detection of codeine, hydrocodone (>1000 ng/mL), morphine and hydromorphone (>900 ng/mL) in urine. LEDDNKTLLOflzrkqdAuhavsak97/25/2025 4:47 PM [facility] INCComment: Oxycodone screening cut off value = 300 ng/mL This test is used for the detection of oxycodone and oxymorphone in urine. GSMLNTGUDSKSYYisttnfjUqizzgks55/25/2025 4:47 PM [facility] INCComment:Phencyclidine screening cut off value = 25 ng/mLCANNABINOIDS Positive(A)Esrblwri11/25/2025 4:47 PM [facility] Comment:Cannabinoids/THC screening cut off value = 50 ng/mLUrine Barbiturates UkhbnrwlJxhzjfoc33/25/2025 4:47 PM [facility] Comment:Barbiturates screening cut off value = 200 ng/mLBENZODIAZEPINESNegative Slcvczff72/25/2025 4:47 PM [facility] INCComment: Benzodiazepines screening cut off value = 200 ng/mLSpecimen (Source)Anatomical Location / LateralityCollection Method / VolumeCollection TimeReceived TimeUrine 01/08/2025 4:10 PM EDT01/08/2025 4:20 PM EDT Narrative [facility] - 01/08/2025 4:47 PM EDT Confirmation available upon request. Authorizing ProviderResult TypeResult StatusMarchristie Moore DOURINE ORDERABLES Final ResultPerforming OrganizationAddressCity/State/ZIP CodePhone Number [facility] [address] [place] [address], * ECG 12 lead (01/08/2025 3:58 PM EDT)Specimen (Source)Anatomical Location / LateralityCollection Method / VolumeCollection TimeReceived Time01/08/2025 3:58 PM EDT Narrative Authorizing ProviderResult TypeResult StatusMarchristie Moore DOECG ORDERABLES Final ResultPerforming OrganizationAddressCity/State/ZIP CodePhone Number TRAC[facility]AST[facility]UE from Last 3 Months Insurance Care Teams Team MemberRelationshipSpecialtyStart DateEnd Date Pcp, Not In System JOHNY Curtis [id number] PCP - Generalmily Medicine01/08/25
--- OUTSIDE RECORDS SUMMARY | 2025-02-14 11:09 | XMS_ITS | Clinical Summary ---
Author Organization [facility] Address [address] [place] [address] Care Team Providers Care Conservation Of Resources Commissioner Name Role Phone Unavailable Primary Care Provider Unavailabl e Encounters DateTypeDepartmentCare UlcfAlhknzbjuyv38/23/2025Lab Requisition [facility] [address] [place] [phone] Veda Rome, PhD 01/06/2025Lab Requisition [facility] [address] [place], [place] [phone] Veda Rome, PhD from Last 3 Months Social History Tobacco UseTypesPacks/DayYears UsedDateSmoking Tobacco: Never Assessed CommentsUnknownSex and Gender InformationValueDate RecordedSex Assigned at Not on fileLegal CpcNdoncw76/23/2025 1:24 PM EDTGender IdentityNot on fileSexual OrientationNot on file Plan of Treatment Not on file Procedures Procedure NamePriorityDate/TimeAssociated DiagnosisCommentsHEPATITIS C VIRUS (HCV) RNA, QUANTITATIVE PCR, PLASMA/ZWVSQZaoiejz34/22/2025 10:20 AM EDT BLOOD TB SCREEN, TJUARWCPHNvzyuou84/22/2025 10:18 AM EDT from Last 3 Months Results * (ABNORMAL) HEPATITIS C VIRUS (HCV) RNA, QUANTITATIVE PCR, PLASMA/SERUM (01/05/2025 10:20 AM EDT)ComponentValueRef RangeTest MethodAnalysis Time Performed AtPathologist SignatureHCV RNADetected(A)Not detected ASHLEIGH NIKO 6800 01/07/2025 6:38 PM EDTCUN[facility] LABHCV RNA (IU/mL)5,270,000 (H)IU/mL ASHLEIGH NIKO 6800 01/07/2025 6:38 PM EDTCUNIVERS[facility] LABHCV RNA (log IU/mL)6.72(H) Log IU/mL ASHLEIGH NIKO 6800 01/07/2025 6:38 PM [facility]PRE[facility] LABSpecimen (Source) Anatomical Location / LateralityCollection Method / VolumeCollection Time Received TimeBloodBLOOD SPECIMEN / Migkqlh9601/05/2025 10:20 AM EDT01/07/2025 1:21 AM EDT Narrative [facility] - 01/07/2025 6:38 PM EDT niko [...] Mackenzie Rome PhDLABORATORYFinal ResultPerforming OrganizationAddressCity/State/ZIP CodePhone Number [facility] [address] [place] [address], * BLOOD TB SCREEN, INCUBATED (01/05/2025 10:18 AM EDT)ComponentValueRef Range Test MethodAnalysis TimePerformed AtPathologist SignatureTB Nil0.09<=8.00 IU/mL01/08/2025 9:54 AM EDPRE[facility] LABTB1 Ag minus Nil 0.02<0.35 IU/mL01/08/2025 9:54 AM [facility] LABTB2 Ag minus Nil0.00<0.35 IU/mL01/08/2025 9:54 AM [facility] LAB TB YaigsmYbixtntg54/25/2025 9:54 AM [facility] LABMitogen minus Nil>9.91>=0.50 IU/mL01/08/2025 9:54 AM [facility] LABTB Gamma InterpretationInfection with M. tuberculosis complex is unlikely. If latent tuberculosis infection is highly suspected, a negative result does not rule out the infection. Specimens from immunocompromised patients and those <5 years of age may show false negative results. In case of a contact investigation, please repeat 8-12 weeks after a known exposure.01/08/2025 9:54 AM EDTCUNIVERS[facility] LABSpecimen (Source)Anatomical Location / LateralityCollection Method / VolumeCollection TimeReceived TimeBloodBLOOD SPECIMEN / Lhkkwjj0701/05/2025 10:18 AM EDT01/07/2025 9:49 PM EDT Narrative Authorizing ProviderResult TypeResult StatusMachrystal Rome PhDLABORATORYFinal ResultPerforming OrganizationAddressCity/State/ZIP CodePhone Number [facility] [address] [facility] [address] [place] [address], [place] from Last 3 Months
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
--- NOTE | 2025-02-14 11:53 | XR_ITS ---
The [address] [address] Patient Name: CHERI NELSON MRN: [id number] date: 1990 Sex: F Assigned Patient Location: ER Current Patient Location: ER Accession/Order Number: [id number] Exam Date: 02/14/2025 12:04 Report Date: 02/14/2025 13:00 At the request of: KONSTANTIN SNEED Procedure: XR chest 1V PA CHEST: CLINICAL HISTORY: chest pain, shortness of breath COMPARISON: None Unremarkable cardiomediastinal. Lungs clear. No effusion or pneumothorax. XR/XR chest 1V IMPRESSION: Negative acute pleural-parenchymal disease. Impression dictated by: Oscar Leal M.D. 02/14/2025 1:00 PM Dictation Location: [place] [address] Electronically authenticated by: [id number] Y Date: 02/14/2025 13:00
--- NOTE | 2025-02-14 11:53 | ECG_ITS ---
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 Measurements Intervals [place] Rate: 86 P: 17 MN: 132 QRS: 57 QRSD: 74 T: 22 QT: 362 QTc: 405 Interpretive Statements 1100 Sinus rhythm 4068 Nonspecific Twave abnormality 9130 borderline ECG Compared to ECG 02/11/2025 13:06:52 No significant changes Electronically Signed On 02-14-2025 19:46:54 EDT by PRADEEP JO M.D.
--- NOTE | 2025-02-14 11:56 | ED_ITS ---
HPI - Chest Pain General Chief Complaint: Chest Pain Stated Complaint: SOB, CHEST PAIN, HAS CONGESTIVE HEART FAILURE Time Seen by Provider: 02/14/25 11:53 Source: patient Mode of arrival: walk-in History of Present Illness HPI narrative: cc - chest pain and shortness of breath The patient is currently at [facility] undergoing rehab. Around 230 this morning she apparently developed chest pain and trouble breathing. The symptoms persisted so [facility] sent her to our emergency department for evaluation this morning. Patient says that she has history of anxiety and is uncertain whether or not this might be an anxiety attack. She denies any recent illness or injury to the chest or back. She denies any cough or fever. She denies any GI or symptoms. She told me that after she had her 2 children she apparently developed some sort of CHF associated with the deliveries. She denied any prior heart attack. Apparently nothing was given for this pain. Related Data Home Medications ?Medication ?Instructions ?Recorded ?Confirmed acetaminophen 500 mg tablet mg 02/14/25 aripiprazole 5 mg tablet mg 02/14/25 atomoxetine 40 mg capsule mg PO 02/14/25 buspirone 10 mg tablet mg 02/14/25 buspirone 15 mg tablet mg 02/14/25 cetirizine 10 mg tablet (Allergy mg 02/14/25 Relief (cetirizine)) clonidine HCl 0.1 mg tablet mg 02/14/25 cyclobenzaprine 5 mg tablet mg 02/14/25 duloxetine 30 mg capsule,delayed mg PO 02/14/25 release glecaprevir 100 mg-pibrentasvir 40 tab PO 02/14/25 mg tablet (Mavyret) hydroxyzine pamoate 25 mg capsule mg 02/14/25 lamotrigine 100 mg tablet mg 02/14/25 melatonin 10 mg capsule mg 02/14/25 prazosin 1 mg capsule mg 02/14/25 trazodone 50 mg tablet mg 02/14/25 Allergies Allergy/AdvReac Type Severity Reaction Status Date / Time No Known Drug Allergies Allergy Verified 02/11/25 12:28 PFSH PFSH Social History Little interest or pleasure in doing things: not at all Feeling down, depressed, or hopeless: not at all Exam Narrative Exam Narrative: Nurses notes and vital signs reviewed and patient is not hypoxic. afebrile General: Well-appearing and in no apparent distress. Skin: Warm, dry, no pallor noted. No rash. Eye: Pupils are equal, round and EOMI. No scleral icterus. Ears, Nose, Mouth, and Throat: Oral mucosa is moist Cardiovascular: Regular Rate and Rhythm without murmur, gallop or rub. Respiratory: No accessory muscle use or respiratory distress. Lungs are clear to auscultation, no wheezing, rales or rhonchi Chest Wall: no tenderness, crepitus or subcutaneous emphysema Back: No CVA tenderness Musculoskeletal: normal ROM, no calf or popliteal tenderness, no lower extremity edema/swelling GI: Abdomen is soft, non-distended. Normal bowel sounds. No tenderness to palpation. No rebound, guarding, or rigidity noted. Neurological: A&O x4. No cranial nerve dysfunction observed. No truncal ataxia. Moves all extremities. Sensation intact. Psychiatric: Cooperative and interactive. Normal mood and affect. Constitutional Vital Signs, click to edit/add: Last Vital Signs Temp 97.4 F L 02/14/25 11:06 Pulse 72 02/14/25 12:40 Resp 23 H 02/14/25 12:40 BP 100/59 02/14/25 12:30 Pulse Ox 97 02/14/25 12:40 O2 Del Method Room Air 02/14/25 11:06 Course Vital Signs Vital signs: Vital Signs Temperature 97.4 F L 02/14/25 11:06 Pulse Rate 87 02/14/25 11:06 Respiratory Rate 24 H 02/14/25 11:06 Blood Pressure 111/68 02/14/25 11:06 Pulse Oximetry 98 02/14/25 11:06 Oxygen Delivery Method Room Air 02/14/25 11:06 Temperature 97.4 F L 02/14/25 11:06 Pulse Rate 72 02/14/25 12:40 Respiratory Rate 23 H 02/14/25 12:40 Blood Pressure 100/59 02/14/25 12:30 Pulse Oximetry 97 02/14/25 12:40 Oxygen Delivery Method Room Air 02/14/25 11:06 MDM - Chest Pain MDM Narrative Medical decision making narrative: Patient was placed on [facility] and EKG obtained. Blood drawn and sent for evaluation. Portable chest x-ray obtained. The patient was given 600 mg ibuprofen for pain. Blood tests and chest x-ray were unremarkable including negative troponin and negative BNP. The patient was given reassurance and discharged back to [facility]. Lab Data Attestation: I reviewed the patient's lab results. Labs: Lab Results 02/14/25 Range/Units 11:12 WBC 7.9 (4.0-11.0) 10^3/uL RBC 3.99 L (4.20-5.40) 10^6/uL Hgb 11.7 L (12.0-16.0) g/dL Hct 35.9 L (36.0-48.0) % MCV 90.0 (81.0-99.0) fL MCH 29.3 (26.7-34.0) pg MCHC 32.6 (29.9-35.2) g/dL RDW 15.1 H (11.0-15.0) % Plt Count 368 (150-450) 10^3/uL MPV 10.5 (9.5-13.5) fL Neut % (Auto) 59.3 (43.0-75.0) % Lymph % (Auto) 29.2 (20.5-60.0) % [place] % (Auto) 8.2 (1.7-12.0) % Eos % (Auto) 2.4 (0.9-7.0) % Baso % (Auto) 0.5 (0.2-2.0) % Neut # (Auto) 4.7 (1.4-6.5) 10^3/uL Lymph # (Auto) 2.3 (1.2-3.8) 10^3/uL [place] # (Auto) 0.7 (0.3-0.8) 10^3/uL Eos # (Auto) 0.2 (0.0-0.7) 10^3/uL Baso # (Auto) 0.0 (0.0-0.1) 10^3/uL Abs Immat Gran (auto) 0.03 (0.00-0.03) 10^3/uL Imm/Tot Granulo (auto) 0.4 (0.0-0.5) % Sodium 139 (136-145) mmol/L Potassium 4.0 (3.5-5.1) mmol/L Chloride 104 (98-107) mmol/L Carbon Dioxide 25.7 (21.0-32.0) mmol/L Anion Gap 13.3 BUN 12.0 (7.0-18.0) mg/dL Creatinine 0.57 (0.55-1.02) mg/dL Est GFR ( Amer) >60 (>=60 mL/min/1.73m^2) Est GFR (Non-Af Amer) >60 (>=60 mL/min/1.73m^2) BUN/Creatinine Ratio 21.1 Glucose 73 L (74-106) mg/dL Calcium 8.9 (8.5-10.1) mg/dL Troponin I High Sens <4.0 L (4.0-51.3) pg/mL NT-Pro-B Natriuret Pep 40.0 (<=450.0) pg/mL Imaging Data Chest x-ray: Attestation: I have reviewed the pertinent imaging results. Radiologist's impression: ITS Impressions Chest X-Ray 02/14/25 11:53 IMPRESSION: Negative acute pleural-parenchymal disease. Impression dictated by: Oscar Leal M.D. 02/14/2025 1:00 PM Dictation Location: [place] [address] Electronically authenticated by: [id number] Y Date: 02/14/2025 13:00 ECG Data Attestation: I personally reviewed and interpreted this ECG as follows: Interpretation: EKG interpretation:Emergency Department physician interpretation.Normal sinus rhythm at 86bpm.Normal axis, normal intervals and no ST segment elevation or depression. T wave inversion noted only in lead III Heart Score History: Slightly/Non-Suspicious ECG: Normal Age: <45 years Risk Factors: 1 or 2 Risk Factors Troponin: <Normal Limit Total Heart Score Recommendations & Risks:: 1 Discharge Plan Discharge Chief Complaint: Chest Pain Clinical Impression: Chest pain Patient Disposition: Home, Self-Care Time of Disposition Decision: 13:22 Prescriptions / Home Meds: No Action prazosin 1 mg capsule acetaminophen 500 mg tablet buspirone 10 mg tablet atomoxetine 40 mg capsule PO aripiprazole 5 mg tablet clonidine HCl 0.1 mg tablet trazodone 50 mg tablet cetirizine [Allergy Relief (cetirizine)] 10 mg tablet lamotrigine 100 mg tablet buspirone 15 mg tablet hydroxyzine pamoate 25 mg capsule cyclobenzaprine 5 mg tablet duloxetine 30 mg capsule,delayed release(DR/EC) PO melatonin 10 mg capsule Mavyret 100-40 mg tablet PO Print Language: Australian Instructions: Chest Pain (ED) Referrals: Physician,Non-Staff, MD [Primary Care Provider] - 1 week
[2025-02-14 11:59] LABS: Hematocrit 35.9 % (36.0-48.0); Hemoglobin 11.7 g/dL (12.0-16.0); Immature Granulocytes Abs Auto 0.03 10^3/uL (0.00-0.03); Immature Granulocytes Pct Auto 0.4 % (0.0-0.5); Lymphocytes Absolute Auto 2.3 10^3/uL (1.2-3.8); Mean Corpuscular HGB Conc 32.6 g/dL (29.9-35.2); Mean Corpuscular Hemoglobin 29.3 pg (26.7-34.0); Mean Corpuscular Volume 90.0 fL (81.0-99.0); Platelet Count 368 10^3/uL (150-450); Red Blood Count 3.99 10^6/uL (4.20-5.40); White Blood Count 7.9 10^3/uL (4.0-11.0)
[2025-02-14] MEDS: IBUPROFEN 600 MG TABLET PO (12:15)
[2025-02-14 12:24] LABS: Anion Gap 13.3; Blood Urea Nitrogen 12.0 mg/dL (7.0-18.0); Calcium 8.9 mg/dL (8.5-10.1); Carbon Dioxide 25.7 mmol/L (21.0-32.0); Chloride 104 mmol/L (98-107); Estimated GFR (African America >60 (>=60 mL/min/1.73m^2); Estimated GFR (Non-African Ame >60 (>=60 mL/min/1.73m^2); Glucose 73 mg/dL (74-106); NT Pro B Type Natriuretic Pept 40.0 pg/mL (<=450.0); Potassium 4.0 mmol/L (3.5-5.1); Sodium 139 mmol/L (136-145)
== END 2025-02-14 13:32 | disposition home or self-care (01) ==
PROVIDERS: Emergency Provider Emergency Medicine
DX: R07.9 Chest pain, unspecified (principal); F41.9 Anxiety disorder, unspecified
CPT/HCPCS: 36415; 71045; 80048; 83880; 84484; 85025; 93005; 99285